=== PATIENT | female | born 1955 | race Caucasian/White ===

== ENCOUNTER 2023-05-19 16:43 | Emergency (ER) | payer MEDICARE, MEDICAID ==
[2023-05-19] MEDS ORDERED: Famotidine 20 MG Tab PO ONE (16:58)
[2023-05-19] MEDS ORDERED: Sodium Chloride 0.9% 10 ML Syringe FLUSH PRN (16:59)
[2023-05-19] MEDS ORDERED: diphenhydrAMINE 50 MG/ML SDV IVPUSH ONE (17:00)
[2023-05-19] MEDS: methylPREDNISolone Sodium Succinate 40 MG/1 ML SDV IVPUSH ONE ×2 (17:10→17:47)
[2023-05-19] MEDS ORDERED: methylPREDNISolone Sodium Succinate 40 MG/1 ML SDV ONE (17:43)
[2023-05-19] MEDS ORDERED: methylPREDNISolone Sodium Succinate 40 MG/1 ML SDV IVPUSH ONE (17:43)
[2023-05-19] MEDS ORDERED: Famotidine 20 MG/2 ML SDV IVPUSH ONE (19:07)
== END 2023-05-19 19:40 | disposition home or self-care (01) ==
LOC: LB.ED 16:43
DX: T78.1XXA Other adverse food reactions, not elsewhere classified, initial encounter (principal); R22.0 Localized swelling, mass and lump, head; Z88.1 Allergy status to other antibiotic agents; I10 Essential (primary) hypertension; Z79.899 Other long term (current) drug therapy
CPT/HCPCS: 96374; 96375; 96376; 99283; 99283-25; J1200; J2920; J3490

== ENCOUNTER 2023-06-26 00:14 | Emergency (ER) | payer MEDICARE, MEDICAID ==
[2023-06-26] MEDS ORDERED: EPINEPHrine 1 MG/ML SDV IM ONE (00:28)
[2023-06-26] MEDS ORDERED: methylPREDNISolone Sodium Succinate 125 MG/2 ML SDV IVPUSH ONE (00:33)
[2023-06-26] MEDS ORDERED: diphenhydrAMINE 50 MG/ML SDV IVPUSH ONE (00:33)
[2023-06-26] MEDS ORDERED: Famotidine 20 MG/2 ML SDV IVPUSH ONE (00:34)
[2023-06-26] MEDS ORDERED: EPINEPHrine 0.3 MG/0.3 ML Pen Autoinjector IM ONE (00:34)
[2023-06-26] MEDS: Albuterol/Ipratropium 3.0-0.5 MG/3 ML Neb Soln NEB SCH ×4 (00:35→06:53)
[2023-06-26] MEDS ORDERED: Sodium Chloride 0.9% 1,000 ML IV SCH (00:45)
[2023-06-26] MEDS ORDERED: methylPREDNISolone Sodium Succinate 125 MG/2 ML SDV ONE (01:16)
[2023-06-26] MEDS ORDERED: Albuterol/Ipratropium 3.0-0.5 MG/3 ML Neb Soln ONE (01:17)
[2023-06-26] MEDS ORDERED: Ketorolac 30 MG/ML SDV ONE (01:43)
[2023-06-26] MEDS ORDERED: Ketorolac 30 MG/ML SDV IVPUSH ONE (01:44)
[2023-06-26] MEDS ORDERED: Sodium Chloride 0.9% 10 ML Syringe FLUSH PRN (02:30)
[2023-06-26] MEDS ORDERED: Acetaminophen 325 MG Tab ONE (02:38)
[2023-06-26] MEDS ORDERED: Acetaminophen 325 MG Tab PO ONE (02:45)
== END 2023-06-26 08:18 | disposition home or self-care (01) ==
LOC: LB.ED 00:14
DX: T78.3XXA Angioneurotic edema, initial encounter (principal); K14.9 Disease of tongue, unspecified; I10 Essential (primary) hypertension; Z88.1 Allergy status to other antibiotic agents; Z88.8 Allergy status to other drugs, medicaments and biological substances
CPT/HCPCS: 94640; 96372; 96374; 96375; 99285-25; A0425; A0429; A9270-GY; J0171; J1200; J1885; J2930; J3490; J7030; J7620